=== PATIENT | male | born 1990 | race Two or more races ===

== ENCOUNTER 2020-11-22 14:30 | Outpatient (REF) | payer OTHER, SELFPAY ==
[2020-11-22 14:44] LABS: COVID-19 Test Positive (Negative); IDNOW Serial# 55D5AD1C
== END 2020-11-22 14:31 | disposition home or self-care (01) ==
LOC: HO.LAB 14:30
PROVIDERS: Visit Provider Internal Medicine
DX: Z20.822 Contact with and (suspected) exposure to COVID-19 (principal)
CPT/HCPCS: 36415; 87635; C9803

== ENCOUNTER 2025-04-29 21:11 | Emergency (ER) | payer OTHER, SELFPAY ==
[2025-04-29 21:18] VITALS: BP 133/64; PULSE 90; RESP 16; TEMP 36.6; O2SAT 99; BMI 30.5
--- OUTSIDE RECORDS SUMMARY | 2025-04-29 21:42 | XMS_ITS | Clinical Summary ---
Author Organization [facility] Address [address] [place] [address] Care Team Providers Care Live In Caregiver Name Role Phone Law Garcia NP Primary Care Provider [phone] Source Comments PLEASE NOTE, if this patient is a minor, it may be UNLAWFUL to discuss sensitive information that is contained in these records (such as FAMILY PLANNING, MENTAL HEALTH or SUBSTANCE ABUSE) with the minor patient's parent or other person without the patient's specific authorization.[facility] Allergies Active Allergy Reactions Criticality Noted Date Comments Pectin 10/27/2018 All fruits Medications ciclopirox (LOPROX) 0.77 % creamIndication s:Tinea corporis Apply topically 2 (two) times daily 30 g 9 Active fexofenadine (DEANDRE ALLERGY) 60 mg tabletIndicatio ns:Environmenta l allergies Take 1 Tab by mouth 2 (two) times daily as needed for allergies 60 Tab 3 9 Active fluticasone propionate (FLONASE) 50 mcg/actuation nasal sprayIndication s:Environmental allergies Place 1 [place] in both nostrils once daily 16 g 2 9 Active Active Problems Problem Noted Date Diagnosed Date Environmental allergies 11/05/2018 Overview (11/05/2018): Patient reported Encounter for circumcision 11/05/2018 Class 1 obesity due to exces s calories without serious comorbidity with body mass index (BMI) of 30.0 to 30.9 in adult 11/04/2018 Family History Medical History Relation Name Comments Diabetes Father Hypertension Mother Diabetes Paternal Grandfather Relation Name Status Comments Brother 6 brothers Father Alive Mother Alive Paternal Grandfather Sister 2 sisters Social History Tobacco Use Types Packs/Day Years Used Date Smoking Tobacco: Never Smokeless Tobacco: Never Tobacco Cessation:Counseling Given: No Alcohol Use Standard Drinks/Week Comments No 0 (1 standard drink = 0.6 oz pur e alcohol) Social Connections Answer Date Recorded Social Connections and Isolation 0 04/12/2019 Financial Resource Strain Answer Date R ecorded Financial Resource Strain 0 2018 Stress Answer Date Recorded Stress 0 04/12/2019 Physical Activity Answer Date Recorded Physical Activity 0 04/12/2019 Food Insecurity Answer Date Recorded Food 0 04/12/2019 Transportation Needs Answer Date Record ed Transportation 0 04/12/2019 Housing Stability Answer Date Recorded Housing 0 04/12/2019 Safety and Environment Answer Date Byron rded Safety 0 04/12/2019 Utilities Answer Date Recorded Utilities 0 04/12/2019 Employment Answer Date Recorded Employment 0 04/12/2019 Sex and Gender Information Value Date Recorded Sex Assigned at Male 10/27/2018 7:52 AM PDT Legal Sex Male 7:15 AM PDT Gender Identity Male 10/27/2018 7:52 AM PDT Sexual Orientation Straight 10/27/2018 7: 52 AM PDT 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 Not on file Not on file Last Filed Vital Signs Vital Sign Reading Time Taken Comments Blood Pressure 120/80 11/05/2018 9:38 AM EDT Pulse 80 11/05/2018 9:38 AM EDT Temperature 36.7 C (98 F) 11/05/2018 9:38 AM EDT Respiratory Rate 18 11/05/2018 9:38 AM EDT Oxygen Saturation - - Inhaled Oxygen Concentration - - Weight 86.2 kg (190 lb) 11/05/2018 9:38 AM EDT Height 167.6 cm (5' 6 ) 11/05/2018 9:38 AM EDT Body Mass Index 30.67 11/05/2018 9:38 AM EDT Plan of Treatment Not on file Insurance [facility] Member Subscriber Plan / Payer (Ef fective 2018-Present) Name:Sudeep Navarrete Relation to Subscriber:Self Name:Sudeep Navarrete Payer ID:[id number] Group ID:Not on file Type:[employer] Address: [address] [place], [place] [id number] Care Teams Live In Caregiver Relationship Specialty Start Date End Date Law Garcia NP [facility] [place] [address] PCP - General WRAPPER DIPPER Gerontology 10/27/18
--- OUTSIDE RECORDS SUMMARY | 2025-04-29 21:42 | XMS_ITS | Clinical Summary ---
Author Organization [facility] Address [address] [place] [address] Care Team Providers Care Grinder Operator Surface Tool Name Role Phone Jerad Fuchs MD Primary Care Provider [phone] Social History Tobacco Use Types Packs/Day Years Used Date Smoking Tobacco: Never Smokeless Tobacco: Never Sex and Gender Information Value Date Recorded Sex Assigned at Not on file Legal Sex Male 2:36 PM EST Gender Identity Not on file Sexual Orientation Not on file Obstetrics History Plan of Treatment Health Maintenance Due Date Last Done Comments DTaP,Tdap,and Td Vaccines (1 - Tdap) 2010 Hepatitis B Vaccines (1 of 3 - 19+ 3-dose series) 2010 HIV Screening 09/17/2023 Hepatitis C Screening 09/17/2023 Social Influencers of Health Screening 09/17/2023 Depression Screening 08/18/2024 COVID-19 Vaccine ( - 2023-2 5 season) 2025 Influenza Vaccine (#1) 2025 HIB Vaccines Aged Out No longer eligi ble based on patient's age to complete this topic HPV Vaccines Aged Out No longer eligi ble based on patient's age to complete this topic Hepatitis A Vaccines Aged Out No long er eligible based on patient's age to complete this topic IPV Vaccines Aged Out No longer eligi ble based on patient's age to complete this topic MMR Vaccines Aged Out No longer eligi ble based on patient's age to complete this topic Meningococcal ACWY Vaccine Aged Out N o longer eligible based on patient's age to complete this topic Meningococcal B Vaccine Aged Out No l onger eligible based on patient's age to complete this topic Pneumococcal Vaccine: Pediat rics (0 to 5 Years) and At-Risk Patients (6 to 49 Years) Aged Out No longer eligible b ased on patient's age to complete this topic RSV Immunization Patients Un martita 20 months Aged Out No longer eligible b ased on patient's age to complete this topic Varicella Vaccines Aged Out No longer eligible based on patient's age to complete this topic Care Teams Grinder Operator Surface Tool Relationship Specialty Start Date End Date Jerad Fuchs MD [address] [place] [address] PCP - General 05/22/23
[2025-04-29 22:03] VITALS: BP 114/63; PULSE 69; RESP 16; TEMP 36.6; O2SAT 98
[2025-04-29 22:07] LABS: IDNOW Serial# 55D5AD1C; Strep A Nucleic Acid Negative (Negative)
[2025-04-29 22:14] LABS: COVID-19 Test Negative (Negative); IDNOW Serial# 58CA691E
[2025-04-29 22:17] VITALS: O2SAT 99
[2025-04-29 22:17] LABS: IDNOW Serial# 08D9AD1C
[2025-04-29 22:51] LABS: Influenza B2 Negative (Negative)
--- NOTE | 2025-04-29 22:55 | ED.GENADULT ---
HPI - General Adult General Chief complaint: Upper Respiratory Symptoms Stated complaint: Feels something stuck in throat Time Seen by Provider: 04/29/25 22:28 Source: patient Mode of arrival: ambulatory Limitations: no limitations History of Present Illness ED Provider: Dr. Matson [facility] narrative: This is a 35-year-old male presented hospital today for sore throat presents to ER today for evaluation of sore throat for the past week. Patient stated that it did improve however recently start worsening. Patient was worried about the cobblestoning back of his throat. No coughing associated. Denies any fever. Related Data Previous Rx's ?Medication ?Instructions ?Recorded amoxicillin 500 mg capsule 500 mg PO Q12H 10 days #20 caps 04/29/25 Allergies Allergy/AdvReac Type Severity Reaction Status Date / Time apple Allergy Itching Verified 04/29/25 21:21 Review of Systems Review of Systems: Pertinent review of systems as mentioned in HPI. All other system otherwise negative. PMFSH Past Medical History [facility] Narrative: None Social History Social History Smoked in Last 30 Days: No Use of substances other than those prescribed or required for medical reasons: No Advance Directives: No Advance Directives Information Provided: No Do you have a plan to hurt others: No Plan Physical Exam ED Exam Exam: General: Pleasant, no distress, interacting appropriately Head: Normacephalic, atraumatic ENT: oral mucosa moist, neck supple, no tracheal deviation, cobblestoning back of the throat, did not appreciate any signs of exudate Neurological: Awake and alert, no facial droop noted Skin: Warm and dry Psychiatric: Appropriate mood and thoughts Vital Signs: Vital Signs - 24 hr 04/29/25 21:18 04/29/25 22:03 04/29/25 22:17 Temperature 97.8 F 97.8 F Pulse Rate 90 69 Respiratory Rate 16 16 Blood Pressure 133/64 114/63 Pulse Oximetry 99 98 99 Oxygen Delivery Method Room Air Room Air Room Air BMI result Body Mass Index 30.5 Medical Decision Making Medical Decision Making [facility] Narrative: 35-year-old male presented hospital today for evaluation of sore throat and cobblestoning back of his throat. I did not appreciate any exudate however patient has history of improvement with a sore throat secondary but worsening. We will plan to treat patient with amoxicillin for strep throat. Patient will be swabbed for COVID flu and strep all has been negative. Patient appears to be well. We will plan to discharge patient with a course of amoxicillin. Differential Diagnosis Differential Diagnoses: The differential diagnosis associated with the presentation includes Pharyngitis, strep pharyngitis, viral pharyngitis Lab Data MDM Lab Attestation statement: I reviewed the patient's lab results. Labs: Lab Results 04/29/25 Range/Units 21:47 COVID-19 (SLAVA) Negative (Negative) COVID-19 Clin Com See Note Influenza Type A (MALI) Negative (Negative) Influenza Type B (MALI) Negative (Negative) Influenza A & B Note See Note S. pyogenes GrpA MALI Negative (Negative) Discharge Plan Discharge Clinical Impression: Pharyngitis Qualifiers: Pharyngitis/tonsillitis etiology: unspecified etiology Qualified Code(s): J02.9 - Acute pharyngitis, unspecified Patient Disposition: Home, Self-Care Instructions: Pharyngitis (ED) Prescriptions: New amoxicillin 500 mg capsule 500 mg PO Q12H 10 Days Qty: 20 0RF Print Language: Kyrgyz
[2025-04-29 23:30] VITALS: BP 124/81; PULSE 67; RESP 17; TEMP 36.7; O2SAT 100
[2025-04-29 23:34] VITALS: BP 124/81; PULSE 67; RESP 17; TEMP 36.7; O2SAT 100
== END 2025-04-29 23:34 | disposition home or self-care (01) ==
PROVIDERS: Emergency Provider Student in an Organized Health Care Education/Training Program
DX: J02.9 Acute pharyngitis, unspecified (principal); R09.89 Other specified symptoms and signs involving the circulatory and respiratory systems; Z11.52 Encounter for screening for COVID-19; Z03.818 Encounter for observation for suspected exposure to other biological agents ruled out
CPT/HCPCS: 87502; 87635; 87651; 99283; 99284